=== PATIENT | male | born 1990 | race African-American/Black ===

== ENCOUNTER 2016-12-13 23:01 | Emergency (ER) | payer BC, OTHER ==
--- NOTE | ~2016-12-13 | EKG ---
PATIENT: KECIA CAMPBELL UNIT #: [id number] Ventricular Rate: 98 BPM Atrial Rate: 98 BPM P-R Interval: 146 ms QRS Duration: 86 ms Q-T Interval: 306 ms QTC Calculation(Bezet): 390 ms P [place]: 60 degrees Calculated R [place]: 73 degrees Calculated T [place]: 20 degrees Diagnosis Line: Normal sinus rhythm Diagnosis Line: Normal ECG Diagnosis Line: When compared with ECG of 01-FEB-2016 22:44, Diagnosis Line: Questionable change in QRS axis Diagnosis Line: Confirmed by ANA DAVID MD ([id number]) on 12/14/2016 Diagnosis Line: 11:00:29 PM INTERPRETING MD: FRANKIE APARICIO
--- NOTE | ~2016-12-13 | CR63 ---
[facility] A Service of [facility] RADIOLOGY TEXT RESULTS PATIENT: KECIA CAMPBELL LOCATION: [facility] : 90 UNIT #: [id number] AGE: [address]: Tianna Ro MD SEX: M ORDER DR: [id number] [facility] [address] [place], [place] [address] [id number] P MR#: [id number] Acc #: [id number] NAME: KECIA CAMPBELL. : 1990 SEX: M STUDY DATE/TIME: 12/13/2016 21:59 UNIT: [facility] ROOM: STUDY DESCRIPTION: CR Chest 2 View Ordering Physician: Ching Bhatti M.D. Primary Care Physician: Tianna Ro M.D. MEDICAL IMAGING REPORT This report is preliminary unless electronic signature is present EXAM 2-view chest, 12/13/2016 INDICATION 26-year-old male with a cough for a week, worse since last night. Body aches, short of air, fever. TECHNIQUE 2-view chest compared with 02/02/2016. FINDINGS The examination is abnormal. There is pneumonia in the left lower lobe. Followup to clearing recommended after appropriate therapy. No distinct associated effusion. Cardiac silhouette within normal limits. Vascularity unremarkable. Right lung clear. IMPRESSION Left lower lobe pneumonia. Followup to clearing recommended. STAT * RESULT Dictated by... Iain Stewart M.D. THIS IS AN ELECTRONICALLY VERIFIED REPORT Iain Stewart M.D. at 12/13/2016 10:59 PM Darryn TD: 12/13/2016 22:15 JOB #: [id number] [facility] A Service of [facility] RADIOLOGY TEXT RESULTS PATIENT: KECIA CAMPBELL LOCATION: [facility] : 90 UNIT #: [id number] AGE: [address]: Tianna Ro MD SEX: M ORDER DR: MEDICAL IMAGING REPORT Page 1 of 1 COPY
[~2016-12-13 23:01] MED LIST: LORTAB 5/500 TA1 TA1 PO; PHENERGAN25 MG PO; PREDNISONE PO
[2016-12-13 23:30] LABS: BASOPHIL% 0.3 % (0-2.5); EOSINOPHIL% 0.1 % (0.0-7.0); HEMATOCRIT 45.8 % (38.0-50.0); HEMOGLOBIN 15.6 gm/dL (13.0-16.0); LYMPHOCYTE# 2.5 X10e3 (1.0-3.5); LYMPHOCYTE% 13.2 % (17.0-45.0); MEAN CORPUSCULAR HEMOGLOBIN 29.6 PG (28-34); MEAN PLATELET VOLUME 7.3 FL (6.5-11.5); MONOCYTE# 1.4 X10e3 (0-1.0); MONOCYTE% 7.3 % (3.0-12.0); NEUTROPHIL# 15.2 X10e3 (1.5-7.1); NEUTROPHIL% 79.1 % (40-75); PLATELET COUNT 211 X10e3 (140-420); RED BLOOD COUNT 5.27 X10e (3.90-5.60); RED CELL DISTRIBUTION WIDTH 12.9 % (11.0-15.5); WHITE BLOOD COUNT 19.2 X10e3 (4.0-10.5)
[2016-12-13 23:35] LABS: DIFF IND YES
[2016-12-13 23:46] LABS: PLATELET ESTIMATE NORMAL (NORMAL)
[2016-12-13 23:53] LABS: BUN/CREATININE RATIO 8.57; CALCIUM SERUM 8.7 mg/dL (8.4-10.2); CREATININE SERUM 1.4 mg/dL (0.6-1.4); GLOM FILT RATE Estimated 79.8 mL/min (>60); POTASSIUM 3.7 mmol/L (3.5-5.1)
[2016-12-14 00:09] LABS: INFLUENZA A NEG (NEG); INFLUENZA B NEG (NEG)
== END 2016-12-14 03:43 | disposition home or self-care (01) ==
LOC: CED 23:01
PROVIDERS: Student in an Organized Health Care Education/Training Program
DX: J18.9 Pneumonia, unspecified organism (principal); I10 Essential (primary) hypertension
CPT/HCPCS: 36415; 71020; 80048; 83605; 85025; 87040; 87804; 93005; 94640; 96361; 96365; 96367; 99284; J0456; J0696

== ENCOUNTER → 2017-03-12 | Outpatient (CLI) | payer BC, OTHER ==
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
== END | disposition home or self-care (01) ==
LOC: CRAD 13:55
DX: M25.512 Pain in left shoulder (principal)
CPT/HCPCS: 73030